=== PATIENT | female | born 2000 ===

== ENCOUNTER 2023-01-18 23:24 | Inpatient (IN) | payer BC, SELFPAY ==
[2023-01-18 23:42] LABS: Calcium, Ionized (venous) 1.29 mmol/L (1.16-1.32); Chloride (VBG) 98 mmol/L (98-106); Hematocrit-VBG 46 % (36.0-47.0); Hemoglobin (Hb) 15.6 g/dL (11.7-15.5); Sodium 138 mmol/L (133-146)
[2023-01-18 23:44] LABS: Actual Bicarbonate (HCO3v) 3.3 mEq/L (22-28); Base Excess -30.6 mEq/L (-2.0 to +3.0); pH (venous) 6.812 (7.32-7.43)
[2023-01-18] MEDS ORDERED: Sodium Bicarb 50 MEQ/50 ML VIAL ONE (23:47)
[2023-01-18] MEDS ORDERED: INSULIN REGULAR IN 0.9 % NACL 100 UNITS/100 ML BAG ONE (23:48)
[2023-01-18 23:50] LABS: #Basophils 0.1 thou/uL (0.0-0.2); #Neutrophils 19.6 thou/uL (1.40-6.50); %Basophils 0.4 % (0.0-1.0); %Eosinophils 0.1 % (0.0-10.0); %Lymphocytes 7.2 % (21.0-51.0); %Monocytes 4.5 % (0.0-10.0); %Neutrophils 86.4 % (42.0-75.0); Hematocrit 47.6 % (36.0-47.0); Hemoglobin 14.7 g/dL (12.0-16.0); Mean Corpuscular HGB CONC 30.9 g/dL (32.0-36.0); Mean Corpuscular Volume 97.1 fl (78.0-98.0); Mean Platelet Volume 10.5 fL (7.4-10.4); Platelet Count 498 10x3/uL (130-400); RBC Distribution Width 12.2 % (11.5-14.5); White Blood Cell (WBC) Count 22.6 10x3/uL (4.8-10.8)
[2023-01-19 00:10] LABS: BHCG - Serum Negative (NEGATIVE); Pregs Control Background? CLEAR/WHITE (CLR/WHITE); Pregs Control Bar Appear? YES (CONTROL BAR)
[2023-01-19 00:12] LABS: ALT (SGPT) 23 U/L (8-55); AST (SGOT) 18 U/L (5-34); Albumin 4.3 g/dL (3.5-5.0); Alkaline Phosphatase 166 U/L (40-110); BUN (Urea Nitrogen) 34 mg/dL (7.0-18.7); Bilirubin, Total 0.2 mg/dL (0.2-1.2); Calc. Creatinine Clearance 0 mL/min (70-130); Calcium 9.1 mg/dL (7.8-10.44); Chloride 98 mmol/L (98-107); Estimated GFR 36; Globulin 3.7 g/dL (2.4-3.5); Magnesium 2.5 mg/dL (1.6-2.6); Potassium 5.9 mmol/L (3.5-5.1); Sodium 134 mmol/L (136-145)
[2023-01-19 00:17] LABS: Lipase 12 U/L (8-78); Phosphorus 8.3 mg/dL (2.3-4.7)
[2023-01-19] MEDS ORDERED: NS 0.9% w/ 20 MEQ KCL 1,000 ML IV PRN ×2 (00:19)
[2023-01-19] MEDS ORDERED: Dextrose 5 %-0.45 % NaCl 1,000 ML IV PRN (00:19)
[2023-01-19] MEDS ORDERED: Dextrose 50% Abboject 50 ML SYRINGE SLOW IVP PRN (00:19)
[2023-01-19] MEDS ORDERED: Sodium Chloride 0.9% 1,000 ML IV PRN ×4 (00:19)
[2023-01-19] MEDS ORDERED: Electrolyte Replacement Protocol 1 EACH IVPB SCH (00:19)
[2023-01-19 00:22] LABS: Troponin I Less than 0.010 ng/mL (< 0.028)
[2023-01-19 00:24] LABS: Carbon Dioxide Less than 8 mmol/L (22-29); Glucose 827 mg/dL (70-105)
[2023-01-19] MEDS ORDERED: HUMULIN R 100 UNITS in Sodium Chloride 0.9% 100 ML IVPB SCH (00:30)
[2023-01-19 01:11] LABS: Hemoglobin A1c Greater than 14.0 % (4.0-6.0)
[2023-01-19 01:35] LABS: Acetaminophen Less than 10 mcg/mL (10.0-30.0); Alcohol Less than 10.0 mg/dL (Less than 10); Salicylate Less than 8.0 mg/dL (15.0-30.0)
[2023-01-19 01:46] VITALS: BP 107/70
[2023-01-19 01:46] LABS: BUN (Urea Nitrogen) 31 mg/dL (7.0-18.7); Calc. Creatinine Clearance 0 mL/min (70-130); Calcium 8.2 mg/dL (7.8-10.44); Chloride 105 mmol/L (98-107); Estimated GFR 44; Sodium 140 mmol/L (136-145)
[2023-01-19 01:53] LABS: Carbon Dioxide Less than 8 mmol/L (22-29); Glucose 657 mg/dL (70-105)
[2023-01-19 01:54] LABS: Base Excess -27.8 mEq/L (-2.0 to +3.0); Calcium, Ionized (venous) 1.09 mmol/L (1.16-1.32); Chloride (VBG) 105 mmol/L (98-106); Hematocrit-VBG 44 % (36.0-47.0); Hemoglobin (Hb) 15.1 g/dL (11.7-15.5); Potassium (VBG) 5.04 mmol/L (3.70-5.30); Sodium 142 mmol/L (133-146)
[2023-01-19 02:00] LABS: Actual Bicarbonate (HCO3v) 2.5 mEq/L (22-28); pH (venous) 6.958 (7.32-7.43)
[2023-01-19] MEDS ORDERED: Sodium Bicarb 50 MEQ/50 ML VIAL IVP SCH (02:30)
[2023-01-19 03:25] LABS: Amphetamine Not Detected (NotDetected); Barbiturates Screen Not Detected (NotDetected); Benzodiazepine Screen Not Detected (NotDetected); Cocaine Metabolite Screen Not Detected (NotDetected); Methadone Not Detected (NotDetected); Methamphetamine Not Detected (NotDetected); Opiate Screen Not Detected (NotDetected); Oxycodone Screen Not Detected (NotDetected); Phencyclidine (PCP) Not Detected (NotDetected); THC/Cannabinoid Screen Not Detected (NotDetected); Tricyclic Screen Not Detected (NotDetected)
[2023-01-19 03:26] LABS: Bacteria/HPF None Seen HPF (None Seen); Bilirubin Negative (Negative); Blood, Urine Negative (Negative); CAUTI Indications for Culture Alt mental st,lethar; Clarity Clear (Clear); Glucose, Urine (Dipstick) Greater than 1000 mg/dL (Negative); Ketone, Urine 150 mg/dL (Negative); Leukocyte Negative Leu/uL (Negative); Nitrite Negative (Negative); Protein, Urine (Dipstick) 20 mg/dL (Neg-Trace); RBC/HPF None Seen HPF (0-3); Specific Gravity, Urine 1.019 (1.002-1.036); Urobilinogen Normal mg/dL (Less than 2); WBC/HPF 0-3 HPF (0-3)
[2023-01-19 03:29] LABS: Urine Culture Reflex No No
[2023-01-19] MEDS: D5 1/2 NS w/20 mEq KCL 1,000 ML IV PRN ×2 (04:05→20:19)
[2023-01-19 05:09] LABS: Base Excess -16.1 mEq/L (-2.0 to +3.0); Calcium, Ionized (venous) 0.96 mmol/L (1.16-1.32); Chloride (VBG) 107 mmol/L (98-106); Hematocrit-VBG 37 % (36.0-47.0); Hemoglobin (Hb) 12.5 g/dL (11.7-15.5); Sodium 139 mmol/L (133-146); pH (venous) 7.328 (7.32-7.43)
[2023-01-19 05:52] LABS: BUN (Urea Nitrogen) 26 mg/dL (7.0-18.7); Calc. Creatinine Clearance 73 mL/min (70-130); Calcium 7.5 mg/dL (7.8-10.44); Chloride 107 mmol/L (98-107); Estimated GFR 69; Glucose 237 mg/dL (70-105); Potassium 3.8 mmol/L (3.5-5.1); Sodium 139 mmol/L (136-145)
[2023-01-19 05:56] LABS: Carbon Dioxide Less than 8 mmol/L (22-29)
[2023-01-19 07:30] LABS: #Basophils 0.1 thou/uL (0.0-0.2); #Monocytes 1.3 thou/uL (0.11-0.59); #Neutrophils 18.3 thou/uL (1.40-6.50); %Basophils 0.3 % (0.0-1.0); %Lymphocytes 15.4 % (21.0-51.0); %Monocytes 5.3 % (0.0-10.0); %Neutrophils 78.2 % (42.0-75.0); Mean Corpuscular HGB CONC 33.7 g/dL (32.0-36.0); Mean Corpuscular Hemoglobin 30.3 pg (27.0-31.0); Mean Platelet Volume 10.4 fL (7.4-10.4); RBC Distribution Width 12.3 % (11.5-14.5); Red Blood Cell (RBC) Count 3.79 mill/uL (4.20-5.40); White Blood Cell (WBC) Count 23.5 10x3/uL (4.8-10.8)
[2023-01-19 07:44] LABS: Hematocrit 34.1 % (36.0-47.0); Hemoglobin 11.5 g/dL (12.0-16.0)
[2023-01-19 07:45] LABS: Platelet Count 384 10x3/uL (130-400)
[2023-01-19 08:23] LABS: Base Excess -11.8 mEq/L (-2.0 to +3.0); Calcium, Ionized (venous) 1.09 mmol/L (1.16-1.32); Chloride (VBG) 107 mmol/L (98-106); Hematocrit-VBG 35 % (36.0-47.0); Potassium (VBG) 3.65 mmol/L (3.70-5.30); Sodium 140 mmol/L (133-146); pH (venous) 7.311 (7.32-7.43)
[2023-01-19 08:55] LABS: Anion Gap 20 mmol/L (10-20); BUN (Urea Nitrogen) 22 mg/dL (7.0-18.7); Calc. Creatinine Clearance 69 mL/min (70-130); Calcium 7.6 mg/dL (7.8-10.44); Carbon Dioxide 14 mmol/L (22-29); Chloride 109 mmol/L (98-107); Estimated GFR 64; Glucose 176 mg/dL (70-105); Potassium 3.6 mmol/L (3.5-5.1); Sodium 139 mmol/L (136-145)
[2023-01-19] MEDS ORDERED: FLU VACC QS2023-24(6MOS UP)/PF 60 MCG/0.5 ML SYRINGE IM ONE (09:00)
[2023-01-19 09:27] LABS: Actual Bicarbonate (HCO3v) 12.8 mEq/L (22-28)
[2023-01-19] MEDS ORDERED: Ondansetron PF 4 MG/2 ML Vial IVP PRN (14:08)
[2023-01-19] MEDS: Ondansetron ODT 4 MG TAB PO PRN (14:38)
[2023-01-19] MEDS: Acetaminophen 325 MG TAB PO PRN ×2 (14:38→20:16)
[2023-01-19 18:44] LABS: Anion Gap 16 mmol/L (10-20); BUN (Urea Nitrogen) 18 mg/dL (7.0-18.7); Calc. Creatinine Clearance 71 mL/min (70-130); Calcium 7.7 mg/dL (7.8-10.44); Carbon Dioxide 15 mmol/L (22-29); Chloride 109 mmol/L (98-107); Estimated GFR 67; Glucose 139 mg/dL (70-105); Potassium 3.5 mmol/L (3.5-5.1); Sodium 136 mmol/L (136-145)
[2023-01-20 00:03] LABS: Anion Gap 17 mmol/L (10-20); BUN (Urea Nitrogen) 13 mg/dL (7.0-18.7); Calc. Creatinine Clearance 78 mL/min (70-130); Calcium 7.6 mg/dL (7.8-10.44); Carbon Dioxide 12 mmol/L (22-29); Chloride 110 mmol/L (98-107); Estimated GFR 74; Glucose 167 mg/dL (70-105); Potassium 3.8 mmol/L (3.5-5.1); Sodium 135 mmol/L (136-145)
[2023-01-20 03:31] LABS: #Monocytes 0.5 thou/uL (0.11-0.59); #Neutrophils 6.9 thou/uL (1.40-6.50); %Basophils 0.1 % (0.0-1.0); %Eosinophils 0.2 % (0.0-10.0); %Lymphocytes 19.5 % (21.0-51.0); %Monocytes 5.7 % (0.0-10.0); %Neutrophils 74.1 % (42.0-75.0); Hematocrit 29.9 % (36.0-47.0); Hemoglobin 10.1 g/dL (12.0-16.0); Mean Corpuscular HGB CONC 33.8 g/dL (32.0-36.0); Mean Corpuscular Hemoglobin 30.1 pg (27.0-31.0); Mean Corpuscular Volume 89.3 fl (78.0-98.0); Mean Platelet Volume 9.5 fL (7.4-10.4); RBC Distribution Width 12.8 % (11.5-14.5); Red Blood Cell (RBC) Count 3.35 mill/uL (4.20-5.40); White Blood Cell (WBC) Count 9.3 10x3/uL (4.8-10.8)
[2023-01-20 03:55] LABS: Platelet Count 281 10x3/uL (130-400)
[2023-01-20 04:43] LABS: Anion Gap 12 mmol/L (10-20); BUN (Urea Nitrogen) 11 mg/dL (7.0-18.7); Calc. Creatinine Clearance 82 mL/min (70-130); Calcium 7.4 mg/dL (7.6-10.4); Carbon Dioxide 16 mmol/L (22-29); Chloride 112 mmol/L (98-107); Estimated GFR 78; Glucose 160 mg/dL (70-105); Potassium 3.8 mmol/L (3.5-5.1); Sodium 136 mmol/L (136-145)
[2023-01-20] MEDS: D5 1/2 NS w/20 mEq KCL 1,000 ML IV PRN (04:58)
[2023-01-20 05:40] VITALS: BMI 23.1
[2023-01-20 07:03] LABS: Anion Gap 13 mmol/L (10-20); BUN (Urea Nitrogen) 9 mg/dL (7.0-18.7); Calc. Creatinine Clearance 92 mL/min (70-130); Calcium 7.7 mg/dL (7.8-10.44); Carbon Dioxide 14 mmol/L (22-29); Chloride 112 mmol/L (98-107); Estimated GFR 83; Glucose 168 mg/dL (70-105); Potassium 3.8 mmol/L (3.5-5.1); Sodium 135 mmol/L (136-145)
[2023-01-20 08:13] VITALS: TEMP 98.4
[2023-01-20] MEDS ORDERED: Insulin Glargine 30 UNITS/0.3 ML VIAL SC SCH (09:00)
[2023-01-20] MEDS ORDERED: Dextrose 5% in Water 1,000 ML IV PRN (09:12)
[2023-01-20] MEDS ORDERED: Glucagon 1 MG/ML KIT IM PRN (09:12)
[2023-01-20] MEDS ORDERED: HumaLOG 300 UNITS/3 ML VIAL SC PRN (09:12)
[2023-01-20] MEDS ORDERED: Dextrose 50% Abboject 50 ML SYRINGE SLOW IVP PRN (09:12)
[2023-01-20 12:00] LABS: Anion Gap 14 mmol/L (10-20); BUN (Urea Nitrogen) 7 mg/dL (7.0-18.7); Calc. Creatinine Clearance 86 mL/min (70-130); Calcium 7.7 mg/dL (7.8-10.44); Carbon Dioxide 17 mmol/L (22-29); Chloride 109 mmol/L (98-107); Estimated GFR 77; Glucose 341 mg/dL (70-105); Potassium 4.6 mmol/L (3.5-5.1); Sodium 135 mmol/L (136-145)
[2023-01-20] MEDS: Ondansetron ODT 4 MG TAB PO PRN (12:18)
[2023-01-20] MEDS: Acetaminophen 325 MG TAB PO PRN (12:18)
[2023-01-20] MEDS: HumaLOG 300 UNITS/3 ML VIAL SC PRN ×2 (12:19→15:34)
[2023-01-20 13:38] LABS: Actual Bicarbonate (HCO3v) 7.1 mEq/L (22-28)
== END 2023-01-20 16:52 | disposition left against medical advice (07) | DRG 637 ==
LOC: ERS 23:24 → ERHOLD 01-19 00:19 → IMCU/EMU 01-19 03:42
PROVIDERS: ADMIT Student in an Organized Health Care Education/Training Program; ATTEND Internal Medicine
DX: E10.10 Type 1 diabetes mellitus with ketoacidosis without coma (principal); G93.41 Metabolic encephalopathy; N17.9 Acute kidney failure, unspecified; E03.9 Hypothyroidism, unspecified; F39 Unspecified mood [affective] disorder; Z91.148 Patient's other noncompliance with medication regimen for other reason; E87.5 Hyperkalemia; D72.828 Other elevated white blood cell count
CPT/HCPCS: 36415; 36416; 71045; 76770; 80048; 80053; 80306; 80307; 81001; 82010; 82805; 83036; 83690; 83735; 83930; 84100; 84484; 84703; 85025; 87040; 87149; J1815; J3480; Q0162

== ENCOUNTER 2023-04-06 17:22 | Inpatient (IN) | payer BC ==
[2023-04-06 17:37] LABS: Analyzer IN Cardio ER; Calcium, Ionized (arterial) 1.29 mmol/L (1.12-1.30); Carboxyhemoglobin (COHb) 1.1 gm% (0.0-3.0); Hematocrit-ABG 43 % (36.0-47.0); Hemoglobin (Hb) 14.6 g/dL (12.0-16.0); O2 Tension (PaO2), arterial 145.8 mmHg (80.0-100.0); Potassium - ABG Lab 5.76 mmol/L (3.70-5.30)
[2023-04-06 17:40] LABS: Base Excess (BEa) -30.2 mEq/L (-2.0 to +3.0)
[2023-04-06] MEDS ORDERED: Insulin Regular 300 UNITS/3 ML VIAL ONE (17:41)
[2023-04-06] MEDS ORDERED: INSULIN REGULAR IN 0.9 % NACL 100 UNITS/100 ML BAG ONE (17:41)
[2023-04-06] MEDS ORDERED: Sodium Bicarb 50 mEq/50 ML VIAL ONE ×2 (17:45→19:22)
[2023-04-06 18:05] LABS: #Basophils 0.1 thou/uL (0.0-0.2); #Monocytes 0.2 thou/uL (0.11-0.59); #Neutrophils 18.6 thou/uL (1.40-6.50); %Basophils 0.3 % (0.0-1.0); %Lymphocytes 9.2 % (21.0-51.0); %Monocytes 0.7 % (0.0-10.0); %Neutrophils 88.9 % (42.0-75.0); Hematocrit 44.6 % (36.0-47.0); Hemoglobin 13.9 g/dL (12.0-16.0); Mean Corpuscular HGB CONC 31.2 g/dL (32.0-36.0); Mean Corpuscular Hemoglobin 30.5 pg (27.0-31.0); Mean Platelet Volume 10.8 fL (7.4-10.4); Platelet Count 485 10x3/uL (130-400); RBC Distribution Width 12.3 % (11.5-14.5); Red Blood Cell (RBC) Count 4.55 mill/uL (4.20-5.40); White Blood Cell (WBC) Count 20.9 10x3/uL (4.8-10.8)
[2023-04-06 18:27] LABS: ALT (SGPT) 22 U/L (8-55); AST (SGOT) 16 U/L (5-34); Albumin 4.4 g/dL (3.5-5.0); Alkaline Phosphatase 110 U/L (40-110); BUN (Urea Nitrogen) 37 mg/dL (7.0-18.7); Bilirubin, Total 0.3 mg/dL (0.2-1.2); Calc. Creatinine Clearance 0 mL/min (70-130); Calcium 8.6 mg/dL (7.8-10.44); Chloride 103 mmol/L (98-107); Estimated GFR 33; Globulin 2.9 g/dL (2.4-3.5); Potassium 5.9 mmol/L (3.5-5.1); Protein, Total 7.3 g/dL (6.0-8.3); Sodium 135 mmol/L (136-145)
[2023-04-06 18:30] LABS: Carbon Dioxide Less than 8 mmol/L (22-29); Critical Call Chemistry NUR.DD11@1830; Glucose 795 mg/dL (70-105)
[2023-04-06] MEDS ORDERED: Sodium Chloride 0.9% 1,000 ML IV PRN ×4 (19:31)
[2023-04-06] MEDS ORDERED: Electrolyte Replacement Protocol 1 EACH IVPB SCH (19:31)
[2023-04-06] MEDS ORDERED: Dextrose 5 %-0.45 % NaCl 1,000 ML IV PRN (19:31)
[2023-04-06] MEDS ORDERED: NS 0.9% w/ 20 MEQ KCL 1,000 ML IV PRN ×2 (19:31)
[2023-04-06 19:40] LABS: Critical Call Chemistry NUR.DD11@1940; Glucose 548 mg/dL (70-105)
[2023-04-06] MEDS ORDERED: HUMULIN R 100 UNITS in Sodium Chloride 0.9% 100 ML IVPB SCH (19:45)
[2023-04-06 19:55] LABS: Influenza A by NAA Not Detected (NotDetected); Influenza B by NAA Not Detected (NotDetected); SARS-CoV-2 NAA Rapid Test Not Detected (NotDetected)
[2023-04-06] MEDS ORDERED: Acetaminophen 325 MG TAB ONE (20:58)
[2023-04-06] MEDS: Acetaminophen 325 MG TAB PO PRN (21:11)
[2023-04-06] MEDS: Ondansetron PF 4 MG/2 ML Vial IVP PRN (21:12)
[2023-04-06 21:15] LABS: Pregnancy Test - Urine (BHCG) Negative (Negative); Pregu Control Background? CLEAR/WHITE (CLR/WHITE); Pregu Control Bar Appear? YES (CONTROL BAR); Specific Gravity 1.016 (1.002-1.036)
[2023-04-06] MEDS ORDERED: Ondansetron PF 4 MG/2 ML Vial ONE (21:15)
[2023-04-06 21:17] LABS: Bilirubin Negative (Negative); Blood, Urine 3+ (Negative); CAUTI Indications for Culture Alt mental st,lethar; Clarity Clear (Clear); Glucose, Urine (Dipstick) Greater than 1000 mg/dL (Negative); Ketone, Urine Greater than 150 mg/dL (Negative); Leukocyte Negative Leu/uL (Negative); Nitrite Negative (Negative); Protein, Urine (Dipstick) 30 mg/dL (Neg-Trace); Specific Gravity, Urine 1.016 (1.002-1.036); Squamous Epithelial 0-3 HPF (0-3); Urobilinogen Normal mg/dL (Less than 2); Yeast-Budding 2+ HPF (None Seen); Yeast-Hyphae Rare HPF (None Seen)
[2023-04-06 21:18] LABS: Bacteria/HPF Rare-Few HPF (None Seen); Urine Culture Reflex No No
[2023-04-06 21:56] LABS: BUN (Urea Nitrogen) 35 mg/dL (7.0-18.7); Calc. Creatinine Clearance 0 mL/min (70-130); Calcium 8.2 mg/dL (7.8-10.44); Carbon Dioxide Less than 8 mmol/L (22-29); Chloride 111 mmol/L (98-107); Estimated GFR 40; Glucose 302 mg/dL (70-105); Phosphorus 4.7 mg/dL (2.3-4.7); Potassium 4.6 mmol/L (3.5-5.1); Sodium 145 mmol/L (136-145)
[2023-04-06 22:17] VITALS: BMI 20.9
[2023-04-06] MEDS: D5 1/2 NS w/20 mEq KCL 1,000 ML IV PRN (22:27)
[2023-04-06] MEDS: Sodium Bicarbonate 150 MEQ in Sterile Water 1,000 ML IV SCH (22:27)
[2023-04-07 03:06] LABS: Calcium 7.5 mg/dL (7.8-10.44); Chloride 107 mmol/L (98-107); Potassium 4.4 mmol/L (3.5-5.1); Sodium 140 mmol/L (136-145)
[2023-04-07 03:07] LABS: Glucose 259 mg/dL (70-105)
[2023-04-07 03:10] LABS: Calc. Creatinine Clearance 59 mL/min (70-130); Estimated GFR 55
[2023-04-07 03:11] LABS: BUN (Urea Nitrogen) 26 mg/dL (7.0-18.7)
[2023-04-07 03:18] LABS: Carbon Dioxide Less than 8 mmol/L (22-29); Critical Call Chemistry NUR.DLH2 @0317
[2023-04-07 05:19] LABS: #Monocytes 1.1 thou/uL (0.11-0.59); #Neutrophils 11.8 thou/uL (1.40-6.50); %Basophils 0.2 % (0.0-1.0); %Lymphocytes 10.5 % (21.0-51.0); %Monocytes 7.8 % (0.0-10.0); %Neutrophils 80.9 % (42.0-75.0); Hematocrit 35.8 % (36.0-47.0); Hemoglobin 11.9 g/dL (12.0-16.0); Mean Corpuscular HGB CONC 33.2 g/dL (32.0-36.0); Mean Corpuscular Hemoglobin 29.9 pg (27.0-31.0); Mean Platelet Volume 9.8 fL (7.4-10.4); RBC Distribution Width 12.5 % (11.5-14.5); Red Blood Cell (RBC) Count 3.98 mill/uL (4.20-5.40); White Blood Cell (WBC) Count 14.5 10x3/uL (4.8-10.8)
[2023-04-07 05:33] LABS: Mean Corpuscular Volume 89.9 fl (78.0-98.0); Platelet Count 308 10x3/uL (130-400)
[2023-04-07 05:36] LABS: BUN (Urea Nitrogen) 20 mg/dL (7.0-18.7); Calc. Creatinine Clearance 57 mL/min (70-130); Calcium 7.6 mg/dL (7.8-10.44); Chloride 111 mmol/L (98-107); Estimated GFR 53; Glucose 300 mg/dL (70-105); Potassium 3.8 mmol/L (3.5-5.1); Sodium 138 mmol/L (136-145)
[2023-04-07 05:39] LABS: BUN (Urea Nitrogen) 20 mg/dL (7.0-18.7); Calc. Creatinine Clearance 55 mL/min (70-130); Calcium 7.6 mg/dL (7.8-10.44); Carbon Dioxide Less than 8 mmol/L (22-29); Chloride 112 mmol/L (98-107); Estimated GFR 51; Glucose 303 mg/dL (70-105); Magnesium 1.6 mg/dL (1.6-2.6); Potassium 3.8 mmol/L (3.5-5.1); Sodium 139 mmol/L (136-145)
[2023-04-07 05:40] LABS: Carbon Dioxide Less than 8 mmol/L (22-29)
[2023-04-07] MEDS: Magnesium 2 GM/50 ML(in water) 2 GM in Premix 1 BAG IVPB SCH (06:03)
[2023-04-07] MEDS: Sodium Bicarb 50 mEq/50 ML VIAL IVP SCH (06:16)
[2023-04-07 08:04] LABS: Actual Bicarbonate (HCO3v) 16.2 mEq/L (22-28); Base Excess -7.4 mEq/L (-2.0 to +3.0); Chloride (VBG) 99 mmol/L (98-106); Hematocrit-VBG 26 % (36.0-47.0); Hemoglobin (Hb) 8.8 g/dL (11.7-15.5); Sodium 124 mmol/L (133-146); pH (venous) 7.406 (7.32-7.43)
[2023-04-07] MEDS: Enoxaparin 40 MG (0.4 mL) SYRINGE SC SCH (09:50)
[2023-04-07 10:27] LABS: Chloride 110 mmol/L (98-107); Potassium 3.6 mmol/L (3.5-5.1); Sodium 141 mmol/L (136-145)
[2023-04-07 10:28] LABS: Glucose 261 mg/dL (70-105)
[2023-04-07 10:28] LABS: Amphetamine Not Detected (NotDetected); Barbiturates Screen Not Detected (NotDetected); Benzodiazepine Screen Not Detected (NotDetected); Cocaine Metabolite Screen Not Detected (NotDetected); Methadone Not Detected (NotDetected); Methamphetamine Not Detected (NotDetected); Opiate Screen Not Detected (NotDetected); Oxycodone Screen Not Detected (NotDetected); Phencyclidine (PCP) Not Detected (NotDetected); THC/Cannabinoid Screen Not Detected (NotDetected); Tricyclic Screen Not Detected (NotDetected)
[2023-04-07 10:30] LABS: Anion Gap 22 mmol/L (10-20); Carbon Dioxide 13 mmol/L (22-29)
[2023-04-07 10:32] LABS: BUN (Urea Nitrogen) 16 mg/dL (7.0-18.7); Calc. Creatinine Clearance 51 mL/min (70-130); Estimated GFR 46
[2023-04-07] MEDS: cefTRIAXone\\ROCEPHIN 2 GM in Sodium Chloride 0.9% 100 ML IVPB SCH (11:19)
[2023-04-07] MEDS: Lactated Ringer's 2,000 ML IV SCH (11:55)
[2023-04-07] MEDS: Pantoprazole 40 MG VIAL IVP SCH (12:52)
[2023-04-07] MEDS: Dextrose 50% Abboject 50 ML SYRINGE SLOW IVP PRN (15:34)
[2023-04-07] MEDS: Lactated Ringer's 1,000 ML IV SCH ×2 (17:46→22:43)
[2023-04-07 22:04] LABS: Anion Gap 8 mmol/L (10-20); BUN (Urea Nitrogen) 8 mg/dL (7.0-18.7); Calc. Creatinine Clearance 79 mL/min (70-130); Carbon Dioxide 17 mmol/L (22-29); Chloride 114 mmol/L (98-107); Estimated GFR 78; Potassium 4.7 mmol/L (3.5-5.1); Sodium 134 mmol/L (136-145)
[2023-04-07 22:24] LABS: Calcium 6.8 mg/dL (7.8-10.44); Critical Call Chemistry NUR.RAO@2223; Glucose 535 mg/dL (70-105)
[2023-04-07] MEDS ORDERED: Dextrose 5% in Water 1,000 ML IV PRN (22:26)
[2023-04-07] MEDS ORDERED: Dextrose 50% Abboject 50 ML SYRINGE SLOW IVP PRN (22:26)
[2023-04-07] MEDS ORDERED: Glucagon 1 MG/ML KIT IM PRN (22:26)
[2023-04-07] MEDS ORDERED: Calcium Chloride 13.6 MEQ in Sodium Chloride 0.9% 100 ML IVPB SCH (22:30)
[2023-04-07] MEDS: Insulin Glargine 30 UNITS/0.3 ML VIAL SC SCH (22:40)
[2023-04-07 23:17] LABS: Calcium 7.5 mg/dL (7.8-10.44); Glucose 251 mg/dL (70-105)
[2023-04-07] MEDS: Calcium Gluconate 4.6 MEQ in Sodium Chloride 0.9% 100 ML IVPB ONE (23:49)
[2023-04-07] MEDS: CALCIUM GLUC 1 GM/NS 50 ML 1 GM in Premix 1 BAG IVPB SCH (23:54)
[2023-04-08] MEDS: HumaLOG 300 UNITS/3 ML VIAL SC PRN (00:06)
[2023-04-08 06:38] LABS: #Monocytes 0.3 thou/uL (0.11-0.59); #Neutrophils 3.7 thou/uL (1.40-6.50); %Basophils 0.2 % (0.0-1.0); %Eosinophils 0.3 % (0.0-10.0); %Lymphocytes 28.8 % (21.0-51.0); %Monocytes 5.6 % (0.0-10.0); %Neutrophils 64.8 % (42.0-75.0); Hematocrit 31.3 % (36.0-47.0); Hemoglobin 10.5 g/dL (12.0-16.0); Mean Corpuscular HGB CONC 33.5 g/dL (32.0-36.0); Mean Corpuscular Hemoglobin 29.3 pg (27.0-31.0); Mean Corpuscular Volume 87.4 fl (78.0-98.0); Mean Platelet Volume 9.9 fL (7.4-10.4); Platelet Count 210 10x3/uL (130-400); RBC Distribution Width 12.6 % (11.5-14.5); Red Blood Cell (RBC) Count 3.58 mill/uL (4.20-5.40); White Blood Cell (WBC) Count 5.7 10x3/uL (4.8-10.8)
[2023-04-08 07:09] LABS: Anion Gap 10 mmol/L (10-20); BUN (Urea Nitrogen) 7 mg/dL (7.0-18.7); Calc. Creatinine Clearance 102 mL/min (70-130); Calcium 7.9 mg/dL (7.8-10.44); Carbon Dioxide 20 mmol/L (22-29); Chloride 114 mmol/L (98-107); Estimated GFR 93; Glucose 155 mg/dL (70-105); Magnesium 1.9 mg/dL (1.6-2.6); Potassium 3.3 mmol/L (3.5-5.1); Sodium 141 mmol/L (136-145)
[2023-04-08] MEDS: Magnesium 2 GM/50 ML(in water) 2 GM in Premix 1 BAG IVPB SCH (07:50)
[2023-04-08] MEDS: Potassium Chloride 20 MEQ TAB PO SCH (07:51)
[2023-04-08] MEDS: Insulin Glargine 30 UNITS/0.3 ML VIAL SC SCH (07:51)
[2023-04-08] MEDS: Pantoprazole 40 MG VIAL IVP SCH (07:52)
[2023-04-08 10:27] LABS: Actual Bicarbonate (HCO3a) 1.7 mEq/L (22-28); CO2 Tension 9.6 mmHg (35.0-45.0); pH, Arterial 6.878 (7.35-7.45)
[2023-04-08 20:35] VITALS: TEMP 99
[2023-04-09 04:57] LABS: #Monocytes 0.3 thou/uL (0.11-0.59); #Neutrophils 2.3 thou/uL (1.40-6.50); %Basophils 0.5 % (0.0-1.0); %Eosinophils 0.7 % (0.0-10.0); %Lymphocytes 40.8 % (21.0-51.0); %Monocytes 6.3 % (0.0-10.0); %Neutrophils 51.5 % (42.0-75.0); Hematocrit 33.4 % (36.0-47.0); Hemoglobin 11.1 g/dL (12.0-16.0); Mean Corpuscular HGB CONC 33.2 g/dL (32.0-36.0); Mean Platelet Volume 10.1 fL (7.4-10.4); Platelet Count 179 10x3/uL (130-400); RBC Distribution Width 12.5 % (11.5-14.5); White Blood Cell (WBC) Count 4.4 10x3/uL (4.8-10.8)
[2023-04-09 05:20] LABS: Anion Gap 12 mmol/L (10-20); BUN (Urea Nitrogen) 14 mg/dL (7.0-18.7); Calc. Creatinine Clearance 99 mL/min (70-130); Calcium 8.2 mg/dL (7.8-10.44); Carbon Dioxide 19 mmol/L (22-29); Chloride 111 mmol/L (98-107); Estimated GFR 89; Glucose 352 mg/dL (70-105); Magnesium 1.7 mg/dL (1.6-2.6); Potassium 4.5 mmol/L (3.5-5.1); Sodium 137 mmol/L (136-145)
[2023-04-09 05:59] LABS: Mean Corpuscular Volume 90.3 fl (78.0-98.0)
[2023-04-09] MEDS: Insulin Glargine 30 UNITS/0.3 ML VIAL SC SCH (08:23)
[2023-04-09] MEDS: Magnesium 2 GM/50 ML(in water) 2 GM in Premix 1 BAG IVPB SCH (08:23)
[2023-04-09 10:46] VITALS: BP 130/90
== END 2023-04-09 13:10 | disposition home or self-care (01) | DRG 637 ==
LOC: ERS 17:22 → ERHOLD 19:25 → CCU 21:43 → T4-B 04-08 04:58
PROVIDERS: ADMIT Internal Medicine; ATTEND Internal Medicine
DX: E10.10 Type 1 diabetes mellitus with ketoacidosis without coma (principal); G93.41 Metabolic encephalopathy; N17.9 Acute kidney failure, unspecified; E03.9 Hypothyroidism, unspecified; D72.829 Elevated white blood cell count, unspecified; E87.5 Hyperkalemia; Z91.199 Patient's noncompliance with other medical treatment and regimen due to unspecified reason; E87.6 Hypokalemia; Z79.4 Long term (current) use of insulin; Z88.8 Allergy status to other drugs, medicaments and biological substances; Z79.899 Other long term (current) drug therapy
CPT/HCPCS: 36415; 36416; 71045; 80048; 80053; 80306; 81001; 81025; 82010; 82805; 83735; 84100; 84443; 85025; 87040; 87081; 87430; 93005; 94760; 96365; 96366; 96375; 96376; A4217; C9113; J0613; J0696; J1650; J1815; J2405; J3475; J3480; J3490; J7120; J7999

== ENCOUNTER 2023-06-26 08:44 | Inpatient (IN) | payer BC ==
[2023-06-26] MEDS ORDERED: Ondansetron PF 4 MG/2 ML Vial ONE (09:09)
[2023-06-26 09:36] LABS: Base Excess -26.3 mEq/L (-2.0 to +3.0); Calcium, Ionized (venous) 0.82 mmol/L (1.16-1.32); Chloride (VBG) 122 mmol/L (98-106); Hematocrit-VBG 29 % (36.0-47.0); Hemoglobin (Hb) 9.9 g/dL (11.7-15.5); Sodium 145 mmol/L (133-146)
[2023-06-26 09:37] LABS: pH (venous) 6.963 (7.32-7.43)
[2023-06-26 09:38] LABS: Actual Bicarbonate (HCO3v) 3.9 mEq/L (22-28)
[2023-06-26 09:47] LABS: #Basophils Less than 0.03 10x3/uL (0.0-0.2); #Eosinphils Less than 0.03 10x3/uL (0.0-0.7); %Basophils 0.3 % (0.0-1.0); %Eosinophils 0.3 % (0.0-10.0); %Lymphocytes 25.7 % (21.0-51.0); %Monocytes 6.1 % (0.0-10.0); Hematocrit 22.8 % (36.0-47.0); Hemoglobin 7.6 g/dL (12.0-16.0); Mean Corpuscular HGB CONC 33.3 g/dL (32.0-36.0); Mean Corpuscular Hemoglobin 30.2 pg (27.0-31.0); Mean Corpuscular Volume 90.5 fL (78.0-98.0); Mean Platelet Volume 10.3 fL (7.4-10.4); Platelet Count 206 10x3/uL (130-400); RBC Distribution Width 12.1 % (11.5-14.5); Red Blood Cell (RBC) Count 2.52 mill/uL (4.20-5.40)
[2023-06-26 10:01] LABS: BHCG - Serum Negative (NEGATIVE); Pregs Control Background? CLEAR/WHITE (CLR/WHITE); Pregs Control Bar Appear? YES (CONTROL BAR)
[2023-06-26 10:08] LABS: Bilirubin Negative (Negative); Blood, Urine Trace (Negative); Clarity Clear (Clear); Glucose, Urine (Dipstick) >=1000 mg/dL (Negative); Ketone, Urine > or equal to 80 mg/dL (Negative); Leukocyte Negative (Negative); Nitrite Negative (Negative); Protein, Urine (Dipstick) Trace mg/dL (Neg-Trace); Urobilinogen 0.2 mg/dL (Less than 2); pH, Urine 5.5 (5.0-9.0)
[2023-06-26] MEDS ORDERED: cefTRIAXone (ROCEPHIN) 2 GM VIAL ONE ×2 (10:08→11:12)
[2023-06-26 10:09] LABS: Bacteria/HPF None Seen HPF (None Seen); CAUTI Indications for Culture Dysuria,urgency,freq; RBC/HPF 0-3 HPF (0-3); WBC/HPF 0-3 HPF (0-3)
[2023-06-26] MEDS ORDERED: Sodium Chloride 0.9% 0 ML ONE (10:09)
[2023-06-26 10:10] LABS: Urine Culture Reflex No No
[2023-06-26 10:14] LABS: ALT (SGPT) 16 U/L (8-55); AST (SGOT) 9 U/L (5-34); Albumin 2.1 g/dL (3.5-5.0); Alkaline Phosphatase 58 U/L (40-110); BUN (Urea Nitrogen) 15 mg/dL (7.0-18.7); Bilirubin, Total 0.1 mg/dL (0.2-1.2); Calc. Creatinine Clearance 0 mL/min (70-130); Calcium 4.6 mg/dL (7.8-10.44); Carbon Dioxide Less than 8 mmol/L (22-29); Chloride 125 mmol/L (98-107); Estimated GFR 117; Globulin 1.7 g/dL (2.4-3.5); Glucose 406 mg/dL (70-105); Lipase 9 U/L (8-78); Magnesium 1.2 mg/dL (1.6-2.6); Potassium 2.1 mmol/L (3.5-5.1); Protein, Total 3.8 g/dL (6.0-8.3); Sodium 145 mmol/L (136-145); Troponin I Less than 0.010 ng/mL (< 0.028)
[2023-06-26 10:14] LABS: Amphetamine Not Detected (NotDetected); Barbiturates Screen Not Detected (NotDetected); Benzodiazepine Screen Not Detected (NotDetected); Cocaine Metabolite Screen Not Detected (NotDetected); Methadone Not Detected (NotDetected); Methamphetamine Not Detected (NotDetected); Opiate Screen Not Detected (NotDetected); Oxycodone Screen Not Detected (NotDetected); Phencyclidine (PCP) Not Detected (NotDetected); THC/Cannabinoid Screen Not Detected (NotDetected); Tricyclic Screen Not Detected (NotDetected)
[2023-06-26] MEDS ORDERED: Potassium Chloride 20 MEQ TAB ONE (10:25)
[2023-06-26] MEDS ORDERED: NS 0.9% w/ 20 MEQ KCL 1,000 ML ONE (10:25)
[2023-06-26] MEDS ORDERED: Magnesium 2 GM/50 ML BAG (IN WATER) ONE (10:25)
[2023-06-26] MEDS ORDERED: CALCIUM GLUC 1 GM (50 ML) BAG ONE (10:25)
[2023-06-26 10:27] LABS: Free T4 (Free Thyroxine) 0.66 ng/dL (0.70-1.48); Thyroid Stimulating Hormone 0.324 uIU/mL (0.35-4.94)
[2023-06-26] MEDS ORDERED: Morphine 4 MG/ML VIAL SLOW IVP PRN (11:11)
[2023-06-26] MEDS ORDERED: Morphine 4 MG/ML VIAL ONE (11:11)
[2023-06-26] MEDS ORDERED: Morphine 2 MG/ML VIAL SLOW IVP PRN (11:11)
[2023-06-26] MEDS ORDERED: Sodium Chloride 0.9% 100 ML ONE (11:12)
[2023-06-26] MEDS ORDERED: Ondansetron PF 4 MG/2 ML Vial IVP PRN (11:12)
[2023-06-26] MEDS ORDERED: HYDROcodone/Acetaminophen 5/325 mg Tablet PO PRN ×2 (11:12)
[2023-06-26] MEDS ORDERED: Acetaminophen 650 MG Suppository PR PRN (11:12)
[2023-06-26] MEDS ORDERED: Acetaminophen 325 MG TAB PO PRN (11:12)
[2023-06-26] MEDS ORDERED: Ondansetron ODT 4 MG TAB PO PRN (11:12)
[2023-06-26] MEDS ORDERED: Senokot S 8.6-50 MG TAB PO PRN (11:12)
[2023-06-26] MEDS ORDERED: Electrolyte Replacement Protocol 1 EACH IVPB SCH (11:21)
[2023-06-26] MEDS ORDERED: Sodium Chloride 0.9% 1,000 ML IV PRN ×4 (11:21)
[2023-06-26] MEDS ORDERED: NS 0.9% w/ 20 MEQ KCL 1,000 ML IV PRN (11:21)
[2023-06-26] MEDS ORDERED: Dextrose 50% Abboject 50 ML SYRINGE SLOW IVP PRN (11:21)
[2023-06-26] MEDS ORDERED: Dextrose 5 %-0.45 % NaCl 1,000 ML IV PRN (11:21)
[2023-06-26 11:56] VITALS: BMI 20.8
[2023-06-26] MEDS: Pantoprazole 40 MG VIAL IVP SCH (12:28)
[2023-06-26] MEDS: NS 0.9% w/ 20 MEQ KCL 1,000 ML IV PRN (12:51)
[2023-06-26] MEDS: Potassium Chloride 20 MEQ in Premix 1 BAG IVPB SCH (12:51)
[2023-06-26 14:04] LABS: Anion Gap 23 mmol/L (10-20); BUN (Urea Nitrogen) 20 mg/dL (7.0-18.7); Chloride 117 mmol/L (98-107); Glucose 170 mg/dL (70-105); Sodium 143 mmol/L (136-145)
[2023-06-26 16:16] LABS: #Basophils 0.03 10x3/uL (0.0-0.2); #Eosinphils Less than 0.03 10x3/uL (0.0-0.7); %Basophils 0.4 % (0.0-1.0); %Lymphocytes 31.2 % (21.0-51.0); %Monocytes 8.1 % (0.0-10.0); %Neutrophils 59.8 % (42.0-75.0); Hematocrit 37.8 % (36.0-47.0); Hemoglobin 12.6 g/dL (12.0-16.0); Mean Corpuscular HGB CONC 33.3 g/dL (32.0-36.0); Mean Platelet Volume 9.8 fL (7.4-10.4); Platelet Count 323 10x3/uL (130-400); RBC Distribution Width 12.3 % (11.5-14.5)
[2023-06-26 16:48] LABS: Calc. Creatinine Clearance 72 mL/min (70-130); Calcium 8.4 mg/dL (7.8-10.44); Carbon Dioxide 9 mmol/L (22-29); Estimated GFR 71; Potassium 4.8 mmol/L (3.5-5.1)
[2023-06-26] MEDS: D5 1/2 NS w/20 mEq KCL 1,000 ML IV PRN (17:06)
[2023-06-26] MEDS: Insulin Reg, Human 100 UNITS in Sodium Chloride 0.9% 100 ML IVPB SCH (18:50)
[2023-06-26] MEDS ORDERED: Glucagon 1 MG/ML KIT IM PRN (18:58)
[2023-06-26] MEDS ORDERED: Dextrose 5% in Water 1,000 ML IV PRN (18:58)
[2023-06-26 19:42] LABS: Anion Gap 14 mmol/L (10-20); BUN (Urea Nitrogen) 16 mg/dL (7.0-18.7); Calc. Creatinine Clearance 72 mL/min (70-130); Carbon Dioxide 12 mmol/L (22-29); Chloride 116 mmol/L (98-107); Estimated GFR 71; Glucose 258 mg/dL (70-105); Potassium 4.2 mmol/L (3.5-5.1); Sodium 138 mmol/L (136-145)
[2023-06-26] MEDS: Insulin Glargine 30 UNITS/0.3 ML VIAL SC SCH (19:49)
[2023-06-26] MEDS: Famotidine 20 MG TAB PO SCH (19:52)
[2023-06-27 00:03] LABS: Anion Gap 17 mmol/L (10-20); BUN (Urea Nitrogen) 14 mg/dL (7.0-18.7); Calc. Creatinine Clearance 73 mL/min (70-130); Calcium 8.5 mg/dL (7.8-10.44); Carbon Dioxide 14 mmol/L (22-29); Chloride 115 mmol/L (98-107); Estimated GFR 72; Glucose 102 mg/dL (70-105); Sodium 142 mmol/L (136-145)
[2023-06-27 04:35] LABS: Base Excess -10.4 mEq/L (-2.0 to +3.0); Calcium, Ionized (venous) 1.21 mmol/L (1.16-1.32); Chloride (VBG) 111 mmol/L (98-106); Hematocrit-VBG 38 % (36.0-47.0); Hemoglobin (Hb) 12.8 g/dL (11.7-15.5); Potassium (VBG) 4.01 mmol/L (3.70-5.30); Sodium 140 mmol/L (133-146); pH (venous) 7.298 (7.32-7.43)
[2023-06-27 04:44] LABS: #Basophils Less than 0.03 10x3/uL (0.0-0.2); %Basophils 0.4 % (0.0-1.0); %Eosinophils 0.6 % (0.0-10.0); %Lymphocytes 36.6 % (21.0-51.0); %Monocytes 8.1 % (0.0-10.0); %Neutrophils 54.1 % (42.0-75.0); Hematocrit 34.9 % (36.0-47.0); Hemoglobin 11.9 g/dL (12.0-16.0); Mean Corpuscular HGB CONC 34.1 g/dL (32.0-36.0); Mean Corpuscular Volume 87.9 fL (78.0-98.0); Mean Platelet Volume 9.7 fL (7.4-10.4); Platelet Count 285 10x3/uL (130-400); RBC Distribution Width 12.7 % (11.5-14.5); Red Blood Cell (RBC) Count 3.97 mill/uL (4.20-5.40)
[2023-06-27 05:05] LABS: Anion Gap 16 mmol/L (10-20); BUN (Urea Nitrogen) 12 mg/dL (7.0-18.7); Calc. Creatinine Clearance 73 mL/min (70-130); Calcium 8.3 mg/dL (7.8-10.44); Carbon Dioxide 12 mmol/L (22-29); Chloride 114 mmol/L (98-107); Estimated GFR 72; Glucose 135 mg/dL (70-105); Magnesium 1.8 mg/dL (1.6-2.6); Potassium 3.9 mmol/L (3.5-5.1); Sodium 138 mmol/L (136-145)
[2023-06-27 05:28] LABS: Free T4 (Free Thyroxine) 0.95 ng/dL (0.70-1.48); Thyroid Stimulating Hormone 0.6183 uIU/mL (0.35-4.94)
[2023-06-27] MEDS: Levothyroxine Sodium 50 MCG TAB PO SCH (06:01)
[2023-06-27] MEDS: Magnesium 2 GM/50 ML(in water) 2 GM in Premix 1 BAG IVPB SCH (09:50)
[2023-06-27] MEDS: PHOS-NAK 1 PKT PACK PO SCH (09:51)
[2023-06-27] MEDS: Enoxaparin 40 MG (0.4 mL) SYRINGE SC SCH (09:51)
[2023-06-27] MEDS: Insulin Glargine 30 UNITS/0.3 ML VIAL SC SCH (09:52)
[2023-06-27] MEDS: Pantoprazole 40 MG VIAL IVP SCH (09:52)
[2023-06-27] MEDS: HumaLOG 300 UNITS/3 ML VIAL SC PRN (09:53)
[2023-06-27] MEDS ORDERED: cefTRIAXone\\ROCEPHIN 2 GM in Sodium Chloride 0.9% 100 ML IVPB SCH (12:00)
[2023-06-27 13:29] LABS: SARS-CoV-2 E Target Negative; SARS-CoV-2 N2 Target Negative; SARS-CoV-2 NAA Rapid Test Not Detected (NotDetected); SARS-CoV-2 RdRP gene Negative
[2023-06-27] MEDS: Potassium Chloride 20 MEQ TAB PO SCH (14:04)
[2023-06-27] MEDS ORDERED: SODIUM CHLORIDE 0.9% IVPB SCH (14:15)
[2023-06-27] MEDS ORDERED: MAGNESIUM SULFATE IVPB SCH (14:15)
[2023-06-27] MEDS: Magnesium Sulfate 2 GM in Sodium Chloride 0.9% 500 ML IV SCH (14:43)
[2023-06-28 05:46] LABS: Anion Gap 12 mmol/L (10-20); BUN (Urea Nitrogen) 8 mg/dL (7.0-18.7); Calc. Creatinine Clearance 107 mL/min (70-130); Calcium 8.1 mg/dL (7.8-10.44); Carbon Dioxide 18 mmol/L (22-29); Chloride 109 mmol/L (98-107); Estimated GFR 114; Glucose 224 mg/dL (70-105); Potassium 3.5 mmol/L (3.5-5.1); Sodium 135 mmol/L (136-145)
[2023-06-28] MEDS: Potassium Chloride 20 MEQ TAB PO SCH (09:09)
[2023-06-28] MEDS: Nystatin Cream 15 GM TUBE TOP SCH (09:09)
[2023-06-28 11:18] VITALS: TEMP 97.7
[2023-06-28 13:42] LABS: Actual Bicarbonate (HCO3v) 14.7 mEq/L (22-28)
== END 2023-06-28 13:48 | disposition home or self-care (01) | DRG 639 ==
LOC: SUATTDRO 08:44 → ERS 08:44 → IMCU/EMU 11:53
PROVIDERS: ADMIT Family Medicine; ATTEND Emergency Medicine
DX: E10.10 Type 1 diabetes mellitus with ketoacidosis without coma (principal); E03.9 Hypothyroidism, unspecified; E87.6 Hypokalemia; M06.9 Rheumatoid arthritis, unspecified; I50.9 Heart failure, unspecified; G47.30 Sleep apnea, unspecified; F41.9 Anxiety disorder, unspecified; F32.A Depression, unspecified; E83.42 Hypomagnesemia; J06.9 Acute upper respiratory infection, unspecified; M54.9 Dorsalgia, unspecified; G89.29 Other chronic pain; Z91.018 Allergy to other foods; Z79.4 Long term (current) use of insulin; E86.0 Dehydration; R30.0 Dysuria
CPT/HCPCS: 36415; 36416; 71045; 80048; 80053; 80306; 81001; 82010; 82805; 83520; 83605; 83690; 83735; 84100; 84439; 84443; 84481; 84703; 85025; 86200; 86850; 86900; 86901; 87040; 87086; 87804; 93005; C9113; J0613; J0696; J1815; J2270; J2405; J3475; J3480; J3490; J7030; U0002